=== PATIENT | female | born 1955 | race Hispanic/Latino ===

== ENCOUNTER → 2018-01-22 | Day surgery (SDC) | payer BC ==
[~2018-01-22] MED LIST: BUPIVACAINE HCL 0.5% INJ 30 ML VIAL INJ ONE; CEFAZOLIN SOD 2 GM/D5W 50ML 50 ML IV ONE; DEXAMETHASONE SOD PHOS INJ 4 MG/ML VIAL ONE; FENTANYL CITRATE/PF 100MCG/2 ML INJ ONE; KETOROLAC TROMETHAMINE 30 MG/ML VIAL ONE; MIDAZOLAM HCL 2 MG/2 ML VIAL ONE; ONDANSETRON HCL INJ 2 MG/ML VIAL ONE; PROPOFOL IV EMULSION 10 MG/ML 20 ML VIAL ONE; SEVOFLURANE INHAL SOLN 250 ML PEN BTL ONE
[2018-01-22 17:25] VITALS: BP 149/70
--- NOTE | 2018-01-28 14:02 | Operative Report ---
DATE OF PROCEDURE: January 22, 2018 PREOPERATIVE DIAGNOSIS: Right carpal tunnel syndrome. POSTOPERATIVE DIAGNOSIS: Right carpal tunnel syndrome. OPERATION PERFORMED: Right carpal tunnel release. 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 ANESTHESIA: General endotracheal intubation anesthesia. IV FLUIDS: As per the anesthesia record. BRIEF DESCRIPTION OF OPERATIVE PROCEDURE Ms. Noam Blankenship was taken to operating room and placed in supine position on the operating table. Following induction general anesthesia as well as endotracheal intubation, patient's right upper extremity was examined under anesthesia. She was found to have a normal-appearing hand. The patient's upper extremity was prepped and draped in standard surgical fashion. Case was begun by creating an incision along the thenar palmar crease. This incision was deepened to the level of the transverse carpal ligament. The distal edge of transverse carpal ligament was identified and a hemostat was placed beneath the ligament and the underlying nerve and tendinous structures were from the ligament. The ligament was then divided in line with the skin incision. The floor of carpal canal was evaluated and found to have no gross abnormalities. The wound was copiously irrigated and the tourniquet was deflated. Hemostasis was obtained prior to closing the wound. The wound was then closed in a single-layer fashion. Sterile dressings were applied and the patient was then awakened and taken to the postanesthesia care unit in stable condition. Job#: [id number] ARA
== END | disposition home or self-care (01) ==
LOC: OR 10:26
PROVIDERS: ATTEND Specialist
DX: G56.03 Carpal tunnel syndrome, bilateral upper limbs (principal); M19.041 Primary osteoarthritis, right hand; M19.042 Primary osteoarthritis, left hand; Z01.810 Encounter for preprocedural cardiovascular examination
CPT/HCPCS: 64721; 93005; J1100; J1885; J2250; J2405

== ENCOUNTER → 2019-05-01 | Day surgery (SDC) | payer BC ==
[~2019-05-01] MED LIST changes: +CEFAZOLIN SOD 1 GM/NS 50ML 100 ML IV ONE; -CEFAZOLIN SOD 2 GM/D5W 50ML 50 ML IV ONE; -KETOROLAC TROMETHAMINE 30 MG/ML VIAL ONE; +LIDOCAINE HCL 2% LOCAL INJ 5 ML SDV VIAL INJ ONE; -ONDANSETRON HCL INJ 2 MG/ML VIAL ONE; +ONDANSETRON HCL INJ 2MG/ML 2ML 2 MG/ML VIAL ONE
[2019-05-01 09:03] VITALS: BP 197/77
--- NOTE | 2019-05-01 21:54 | Operative Report ---
DATE OF PROCEDURE: SURGEON: Osvaldo Cunha MD PREOPERATIVE DIAGNOSIS: Left carpal tunnel syndrome. POSTOPERATIVE DIAGNOSIS: Left carpal tunnel syndrome. OPERATIONS AND PROCEDURES PERFORMED: The patient underwent an open left carpal tunnel release. LAB RN: There was no marketing communications assistant. ANESTHESIA: General endotracheal intubation anesthesia. IV FLUIDS: Per anesthesia record. BRIEF DESCRIPTION OF THE PATIENT'S OPERATIVE PROCEDURE: Ms. Noam Blankenship was taken to the operating room, placed in supine position on the operating table. Following induction of general anesthesia as well as endotracheal intubation, the patient's left upper extremity was examined under anesthesia. She was found to have a normal-appearing hand. The patient's upper extremity was prepped and draped in standard surgical fashion. The case was begun by creating an along the thenar palmar crease. This incision was carried through the skin only. Blunt dissection was used to deepen the incision through the palmar fascia to the level of the transverse carpal ligament. A hemostat was placed beneath the transverse carpal ligament. The transverse carpal ligament was then divided in line with the skin incision. The floor of the carpal canal was evaluated. There were no gross abnormalities. The wound was irrigated. The tourniquet was deflated and hemostasis was obtained prior to closing the wound. Sterile dressings were applied and the patient was then awakened and taken to the postanesthesia care in stable condition. MD BEKAH Liang/MODL /[id number]
== END | disposition home or self-care (01) ==
LOC: OR 05:10
PROVIDERS: ATTEND Specialist
DX: G56.02 Carpal tunnel syndrome, left upper limb (principal); M19.041 Primary osteoarthritis, right hand; Z01.810 Encounter for preprocedural cardiovascular examination
CPT/HCPCS: 64721; 93005; J0690; J1100; J2001; J2250; J2405; J2704; J3010